=== PATIENT | female | born 1955 | race Caucasian/White ===

== ENCOUNTER 2018-01-29 00:35 | Emergency (ER) | payer OTHER ==
[~2018-01-29] VITALS: Ht 165.1 cm; Wt 51.3 kg
[~2018-01-29 00:35] MED LIST: DICLOFENAC SODI75 M2 PO; ORPHENADRINE C100 MG PO
[2018-01-29 00:41] VITALS: BP 137/85
--- NOTE | 2018-01-29 00:50 | ED SKIN/ALLERGY COMPLAINT ---
History of Present Illness General Chief Complaint: Skin Rash/ Abcess Stated Complaint: SCABIES Source: patient, old records Exam Limitations: no limitations Vital Signs & Intake/Output Vital Signs & Intake/Output Vital Signs Date Time Temp Pulse Resp B/P B/P Pulse O2 O2 Flow FiO2 Mean Ox Delivery Rate 01/29 0126 98 Room Air 01/29 0041 98.1 83 18 137/85 98 Room Air Allergies Coded Allergies: Penicillins (Mild, RASH 01/29/18) Reconcile Medications Calamine/Phenol Liquid (Calamine Phenolated Lotion) 180 ML LOTION 1 JAYASHREE TOP PRN PRN itching Diclofenac Sodium 75 MG TABLET.DR 1 TAB PO BID PRN BACK PAIN Diphenhydramine HCl/Zinc Acet (Benadryl Itch Stopping Crm) 2 %-0.1 % CREAM..G. 1 JAYASHREE TOP Q6H PRN itchy rash Orphenadrine Citrate 100 MG TABLET.ER 1 TAB PO BIDP PRN MUSCLE SPASMS Triage Note: TRIAGE: PATIENT REPORTS WAS DX W/ SCABIES TODAY, TAKING HYDROXYZINE DIRECTED AND REPORTS "BUT IT ONLY WORKS FOR 8 HOURS AND THEN I'M ITCHY AGAIN." ALSO TAKING PREDNISONE AND PREMETHRIN CREAM DIRECTED. Triage Nurses Notes Reviewed? yes Onset: Several weeks Duration: week(s):, constant, continues in ED Timing: recent history Severity: severe Location: generalized Possible Factors: insect bite Modifying Factors: Improves With: antihistamine, scratching. Associated Symptoms: rash LMP (ages 10-50): post menopausal : No Patient currently breastfeeds: No HPI: Patient is currently being treated for scabies and complains of itching. She reports Atarax only lasts for 8 hours. She denies fever chills nausea vomiting diarrhea abdominal pain chest pain shortness breath headache dysuria bleeding. Past History Travel History Traveled to [place] past 21 day No Medical History Any Pertinent Medical History? see below for history Neurological: NONE EENT: NONE Cardiovascular: NONE Respiratory: NONE Gastrointestinal: NONE Hepatic: NONE Renal: NONE Musculoskeletal: SCABIES Psychiatric: NONE Endocrine: NONE Blood Disorders: NONE Cancer(s): NONE DESIGN TEACHER/Reproductive: NONE Surgical History Surgical History: none Psychosocial History What is your primary language Citizen [place] Tobacco Use: Refused to answer Family History Hx Contributory? No Review of Systems Review of Systems Constitutional: Reports: no symptoms. EENTM: Reports: no symptoms. Respiratory: Reports: no symptoms. Cardiovascular: Reports: no symptoms. GI: Reports: no symptoms. Genitourinary: Reports: no symptoms. Musculoskeletal: Reports: no symptoms. Skin: Reports: see HPI, rash. Neurological/Psychological: Reports: no symptoms. Hematologic/Endocrine: Reports: no symptoms. Immunologic/Allergic: Reports: no symptoms. All Other Systems: Reviewed and Negative Physical Exam Physical Exam General Appearance: well developed/nourished, alert, awake, anxious, moderate distress Head: atraumatic, normal appearance Eyes: Bilateral: normal appearance, PERRL, EOMI. Ears, Nose, Throat: normal pharynx, normal ENT inspection, hearing grossly normal Neck: normal inspection, supple, full range of motion, no midline tenderness Respiratory: normal breath sounds, chest non-tender, no respiratory distress, quiet respiration, lungs clear Cardiovascular: regular rate/rhythm, normal peripheral pulses, norml femoral pulses equa Gastrointestinal: normal bowel sounds, soft, non-tender, no organomegaly Back: normal range of motion Extremities: normal inspection, normal capillary refill, normal range of motion, no edema Neurologic/Psych: no motor/sensory deficits, awake, alert, oriented x 3, normal gait, normal mood/affect, 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 Skin: intact, rash Skin Problem Location: generalized Skin Problem Character: linear, patchy, vesicular Lymphatic: no anterior cervical roxanna Progress Differential Diagnosis: abscess/cellulitis, allergic reaction Plan of Care: Benadryl cream calamine lotion. Departure Departure Time of Disposition: 49 Disposition: HOME OR SELF CARE Condition: Stable Clinical Impression Primary Impression: Scabies infestation Referrals: Jg OCONNELL,Joni Beal (PCP/Family) Additional Instructions: You can increase atarax / hydroxyzine to 2 tabs every 8 hours for itching Departure Forms: Customer Survey General Discharge Information Prescriptions: Current Visit Scripts Diphenhydramine HCl/Zinc Acet (Benadryl Itch Stopping Crm) 1 JAYASHREE TOP Q6H PRN itchy rash #60 GM Ref 3 Calamine/Phenol Liquid (Calamine Phenolated Lotion) 1 JAYASHREE TOP PRN PRN itching #1 BOT Ref 3
[2018-01-29] MEDS ORDERED: BENADRYL ITCH28.3 G1 TOP (00:53)
[2018-01-29] MEDS ORDERED: CALAMINE PHENO180 ML TOP (00:53)
== END 2018-01-29 01:28 ==
LOC: ERH 00:35
DX: B86 Scabies (principal)